=== PATIENT | female | born 1965 | race Caucasian/White ===

== ENCOUNTER 2019-12-27 10:18 | Outpatient (CLI) | payer MEDICARE, MEDICAID, SELFPAY | END 2019-12-27 10:19 | disposition home or self-care (01) | LOC: ANHBWCAUD 10:21 | DX: H91.93 Unspecified hearing loss, bilateral (principal) | CPT/HCPCS: 92557; 92567 ==

== ENCOUNTER 2021-10-15 08:53 | Outpatient (CLI) | payer MEDICARE, MEDICAID, SELFPAY | END 2021-10-15 08:54 | disposition home or self-care (01) | LOC: ANHBWCAUD 08:55 | PROVIDERS: Visit Provider Family Medicine | DX: H91.93 Unspecified hearing loss, bilateral (principal) | CPT/HCPCS: 92557; 92567 ==

== ENCOUNTER 2022-11-16 10:34 | Outpatient (CLI) | payer MEDICARE, MEDICAID, SELFPAY | END 2022-11-16 10:35 | disposition home or self-care (01) | DX: F71 Moderate intellectual disabilities (principal); F31.9 Bipolar disorder, unspecified; E11.9 Type 2 diabetes mellitus without complications; I10 Essential (primary) hypertension; E78.5 Hyperlipidemia, unspecified | CPT/HCPCS: 92552; 92556; 92567 ==

== ENCOUNTER 2023-11-22 09:14 | Outpatient (CLI) | payer MEDICARE, MEDICAID, SELFPAY | END 2023-11-22 09:15 | disposition home or self-care (01) | LOC: ANHBWCAUD 09:15 | PROVIDERS: Visit Provider Physician Assistant | DX: H90.A22 Sensorineural hearing loss, unilateral, left ear, with restricted hearing on the contralateral side (principal) | CPT/HCPCS: 92557; 92567 ==

== ENCOUNTER 2024-12-03 09:15 | Outpatient (CLI) | payer MEDICARE, MEDICAID, SELFPAY ==
--- OUTSIDE RECORDS SUMMARY | 2024-12-03 10:24 | XMS_ITS | Clinical Summary ---
Author Organization [facility] Address [address] [place] [address] Care Team Providers Care Reserve Officer Name Role Phone No, Physician Primary Care Provider [phone] Allergies No known active allergies Medications allopurinol (ZYLOPRIM) 300 mg tablet 7 Active calcium phos-vit D3-mag oxide 600 mg calcium- 500 unit-50 mg tablet Take by mouth. 6 Active diphenhydrAMINE (diphenhydrAMIN E) 25 mg capsule Take 25 mg by mouth. Active glimepiride (AMARYL) 2 mg tabletIndicatio ns:type 2 diabetes mellitus 7 Active blood glucose diagnostic (glucose blood) strip Use as directed 5 Active ibuprofen (ADVIL,MOTRIN) 600 mg tablet 7 Active FANAPT 8 mg tablet 7 Active FANAPT 10 mg tablet 7 Active lamoTRIgine (LaMICtal) 150 mg tablet 7 Active LANCETS MISC Use as directed 5 Active LINZESS 290 mcg capsule 7 Active linaclotide (LINZESS) 290 mcg capsule Take by mouth. 7 Active lisinopril (PRINIVIL,ZESTR IL) 5 mg tablet Take 5 mg by mouth. Active lisinopril (PRINIVIL,ZESTR IL) 5 mg tablet 7 Active loratadine (CLARITIN) 10 mg tablet Take 10 mg by mouth. Active metFORMIN (GLUCOPHAGE) 1,000 mg tablet Take 1,000 mg by mouth. Active OMEGA-3 FATTY ACIDS-FISH OIL ORAL Take 1,200 mg by mouth. Active simvastatin (ZOCOR) 40 mg tablet 7 Active traMADol (ULTRAM) 50 mg tablet 7 Active acetaminophen (TYLENOL) 325 mg tablet Take 650 mg by mouth every 6 (six) hours as needed for pain. Active mv,Ca,min-iron- FA-lycopene 8 mg iron- 200 mcg-600 mcg tablet Take by mouth. Activ e guaiFENesin (ROBITUSSIN) 20 mg/mL syrup Take 200 mg by mouth 3 (three) times a day as needed for cough. Active bisacodyl EC (DULCOLAX EC) 5 mg EC tablet Take 5 mg by mouth daily as needed for constipation. Active bacitracin-neom ycin-polymyxin B (NEOSPORIN) ointmentIndicat ions:Minor Bacterial Skin Infections Apply topically 3 (three) times a day. 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 50-70) 05/26/2015 Seizure disorder 05/26/2015 Medical History Medical History Date Comments Type 2 diabetes mellitus Diabete s type 2 Depression Depression Hx Other Medical Heart problems Social History Tobacco Use Types Packs/Day Years Used Date Smoking Tobacco: Never Smokeless Tobacco: Never Alcohol Use Standard Drinks/Week Comments No 0 (1 standard drink = 0.6 oz pur e alcohol) Comments Unknown Sex and Gender Information Value Date Recorded Sex Assigned at Not on file Legal Sex Female 4:36 PM DAIRY LAB TECHNICIAN Gender Identity Not on file Sexual Orientation Not on file Obstetrics History Last Filed Vital Signs Vital Sign Reading Time Taken Comments Blood Pressure 140/79 02/08/2017 10:01 AM DAIRY LAB TECHNICIAN Pulse 83 02/08/2017 10:01 AM DAIRY LAB TECHNICIAN Temperature - - Respiratory Rate - - Oxygen Saturation - - Inhaled Oxygen Concentration - - Weight 86.6 kg (191 lb) 02/08/2017 10:01 AM DAIRY LAB TECHNICIAN Height 170.2 cm (5' 7) 02/08/2017 10:01 AM DAIRY LAB TECHNICIAN Body Mass Index 29.91 02/08/2017 10:01 AM DAIRY LAB TECHNICIAN Plan of Treatment Health Maintenance Due Date Last Done Comments Albumin Creatinine Ratio, Urine 1964 Breast Cancer Screening-Mammogram 1964 Cervical Cancer Screening 1964 Colon Cancer Screening-Colonoscopy 1964 Depression Screening 1964 Hemoglobin A1C 1964 Hepatitis C Screening 1964 eGFR 1964 Dilated Eye Exam 1964 Foot Exam 1964 Lipid Panel 1964 Hepatitis B Screening 1982 Regular Well Visit/Exam 18-64 1982 Pneumococcal vaccine <65 (2 of 2 - PPSV23, PCV20, or PCV21) 01/27/2012 12/02/2011 Zoster Vaccine (1 of 2) 2014 DTaP/Tdap/Td Vaccine (3 - Td or Tdap) 09/04/2022 09/04/2012, 02/21/2012 Covid-19 Vaccine (3 - 2024-2 6 season) 2024 04/21/2020, 03/31/2020 Influenza Vaccine (#1) 2024 , 12/05/2019, 12/03/2018, Additional history exists Insurance MEDICARE [facility] Care Teams Reserve Officer Relationship Specialty Start Date End Date No, Physician PCP - General 01/19/17
--- OUTSIDE RECORDS SUMMARY | 2024-12-03 10:24 | XMS_ITS | Encounter Summary ---
Author Organization [facility] Address [address] [facility] [place] [address] Phone Care Team Providers Care Branch Account Executive Name Role Phone Sukhdev Becker DPM Unavailable [phone] Jose Alejandro Sequeira MD Unavailable [phone] Vilma Chavarria APRN, CAMERA TUNING ENGINEER Unavailable Allie Rodriguez MD Primary Care Provider [phone] Cory Puentes Primary Care Provider [phone] Reason for Visit * Reason Comments Medication Refill Encounter Details Date Type Department Care Team (Late st Contact Info) Description 04/22/2023 Refill [facility] - Gastroenterology - [place] [address] [place] [id number] Vilma Chavarria APRN, [employer]ER[employer] TUNING ENGINEER [address] [place] [address] Medication Refill Social History Tobacco Use Types Packs/Day Years Used Date Smoking Tobacco: Never Smokeless Tobacco: Never Alcohol Use Standard Drinks/Week Comments No 0 (1 standard drink = 0.6 oz pur e alcohol) PHQ-2 Answer Date Recorded Total Score - Questions 1-9 0 11/20 Sexually Active Control Partners Comments Not Currently Comments No Sex and Gender Information Value Date Recorded Sex Assigned at Not on file Legal Sex Female 7:34 PM CDT Gender Identity Not on file Sexual Orientation Not on file documented as of this encounter Miscellaneous Notes * Telephone Encounter - Karla Wall RN - 04/25/2023 10:30 AM COLLEGE SPORTS COACH Routing to provider for review and approval. Patient has an appt on 04/28/2023. Last appt on 04/27/2023. Quantity reduced to 30 days and 2 refills. EGE SPORTS COACH * Telephone Encounter - Karla Wall RN - 04/25/2023 10:28 AM COLLEGE SPORTS COACH Pharmacy requesting refill of: Requested Prescriptions Pending Prescriptions Disp Refills linaclotide (Linzess) 145 MCG Capsule [Pharmacy Med Name: LINZESS 145 MCG CAPSULE] 30 Capsule 10 Sig: TAKE (1) CAPSULE BY MOUTH DAILY IN THE MORNING BEFORE BREAKFAST. 7AM *HOME MUST REORDER* Last fill: 04/27/2023 Patients last OV with GI: 04/27/2023 Next Office Visit with GI: 04/28/2023 EGE SPORTS COACH documented in this encounter Plan of Treatment Upcoming Encounters Date Type Department Care Team (Late st Contact Info) Description 12/13/2024 10:30 AM CDT Office Visit [facility] - Primary Care - [place] [address] [place] [phone] Cory Puentes PAC [address] [place] [address] 05/15/2025 9:30 AM CDT Office Visit [facility] - Gastroenterology - [place] [address] [place] [address] Vilma Chavarria APRN, [employer]ER[employer] TUNING ENGINEER [address] [place] [address] 08/12/2025 9:30 AM CDT Office Visit [facility] - Neurology - [place] [address] [place] [address] Kassandra Barahona APRN, DATA TRANSCRIBER [address] [place] [address] documented as of this encounter Visit Diagnoses Diagnosis Chronic constipation Unspecified constipation documented in this encounter Additional Health Concerns Assessment Noted Time PHQ-9 Depression Total Score: 0 12/08/19 23 8:00 AM CDT documented as of this encounter Care Teams Branch Account Executive Relationship Specialty Start Date End Date Allie Rodriguez MD [address] [place], [place] [id number] PCP - General Family Medicine 04/20/23 06/07/23 Cory Puentes PAC [address] [place] [address] PCP - General Physician Ground Water Contractor 06/08/23 Sukhdev Becker DPM Podiatry 04/13/16 Jose Alejandro Sequeira MD [address] [place] [phone] Consulting Physician Neurology 08/19/22 Vilma Chavarria APRN, CAMERA TUNING ENGINEER [address] [place] [address] Nurse Practitioner Advanced Practice Nurse 04/26/22 documented as of this encounter
--- OUTSIDE RECORDS SUMMARY | 2024-12-03 10:24 | XMS_ITS | Clinical Summary ---
Author Organization [facility] Address [address], [facility] [address] [place] [address] Phone Care Team Providers Care Coke Oven Patcher Name Role Phone Sukhdev Becker DPM Unavailable [phone] Jose Alejandro Sequeira MD Unavailable [phone] Vilma Chavarria APRN, CASEWORKER Unavailable Cory Puentes PAC Primary Care Provider [phone] Allergies No known active allergies Medications LamoTRIgine (LAMICTAL) 150 MG Tablet Take 150 mg by mouth 2 times daily. Active loratadine (CLARITIN) 10 MG Tablet Take 10 mg by mouth every morning. Active Calcium Carb-Cholecalcifer ol 500-200 MG-UNIT Tablet Take 1 Tab by mouth daily. Active Probiotic Product ([employer]) Capsule Take 1 Cap by mouth daily. 30 Cap 11 07/20/19 19 Active bisacodyl EC (DULCOLAX) 5 MG Tablet Delayed Response Take 10 mg by mouth daily as needed for Constipation - 1st line. Active Cholecalciferol (VITAMIN D3 PO) Take 5,000 Units by mouth daily. Active docusate sodium (COLACE) 100 MG Capsule Take 1 Capsule by mouth 2 times daily. 180 Capsule 3 04/27/19 22 Active Fanapt 6 MG Tablet Take 6 mg by mouth 2 times daily. 11/08/19 22 Active Reguloid 0.52 g Capsule Take 1 Capsule by mouth 2 times daily. 09/07/19 24 Active Cyanocobalamin (Vitamin B-12) 1000 MCG SL Tablet by Sublingual route daily. Active acetaminophen (TYLENOL) 325 MG Tablet Take 650 mg by mouth every 4 hours as needed. Active guaiFENesin (CHEST CONGESTION RELIEF PO) Take 10 mL by mouth as needed. 100 mg/5 mL Active diphenhydrAMINE (BENADRYL) 25 MG Tablet Take 25 mg by mouth every 6 hours as needed. Active ibuprofen (MOTRIN) 600 MG Tablet Take 600 mg by mouth every 8 hours as needed for Mild or more severe pain. Active mometasone (ELOCON) 0.1 % Solution Apply daily. Mometasone furoate 0.1% SOLN Instill 2 drops into affected ears twice daily as needed. Active bismuth subsalicylate (Stomach Relief) 525 MG/15ML Suspension Take 525 mg by mouth as needed for Diarrhea or Indigestion. Active simethicone (Gas-X Ultra Strength) 180 MG CapsuleIndications :Colon cancer screening Take as directed per colon prep instructions 6 Capsule 03/14/19 25 Active aluminum & magnesium hydroxide-simethic one (MAALOX, MYLANTA) 200-200-20 MG/5ML Suspension Take 30 mL by mouth every 4 hours as needed for Indigestion. Active Neomycin-Bacitraci n-Polymyxin (HCA TRIPLE ANTIBIOTIC OINTMENT EX) by Apply externally route. Active linaclotide (Linzess) 145 MCG CapsuleIndications :Chronic constipation Take 1 Capsule by mouth every morning (before breakfast). 90 Capsule 3 05/10/19 25 Active simvastatin (ZOCOR) 80 MG TabletIndications: Mixed hyperlipidemia Take 1 Tablet by mouth every evening. 90 Tablet 1 06/13/19 25 Active metFORMIN (GLUCOPHAGE) 1000 MG TabletIndications: Type 2 diabetes mellitus without complication, without long-term current use of insulin Take 1 Tablet by mouth 2 times daily. 180 Tablet 06/13/19 25 Active lisinopril (PRINIVIL, ZESTRIL) 10 MG TabletIndications: Essential hypertension Take 1 Tablet by mouth every morning. 90 Tablet 1 06/13/19 25 Active glipiZIDE (GLUCOTROL XL) 10 MG TABLET SR 24 HRIndications:Diab etic polyneuropathy associated with type 2 diabetes mellitus,Type 2 diabetes mellitus without complication, without long-term current use of insulin Take 1 Tablet by mouth daily. 90 Tablet 3 06/13/19 25 Active fenofibrate 160 MG TabletIndications: Mixed hyperlipidemia Take 1 Tablet by mouth daily. 90 Tablet 1 06/13/19 25 Active allopurinol (ZYLOPRIM) 300 MG Tablet Take 1 Tablet by mouth daily. 90 Tablet 06/13/19 25 Active Active Problems Problem Noted Date Diagnosed Date Adenomatous polyp of ascending colon 05/07/2024 Type 2 diabetes mellitus wit hout complication, without long-term current use of insulin 12/13/2023 Vitamin D deficiency 08/06/2020 Vitamin B12 deficiency 05/04/2020 NAFLD (nonalcoholic fatty liver disease) 020 Allergic rhinitis 10/30/2018 Chronic constipation 03/04/2016 Diabetic polyneuropathy asso ciated with type 2 diabetes mellitus 10/09/2015 Moderate intellectual disabilities 05/26/2015 Bipolar affective disorder 05/26/2015 Seizure disorder 05/26/2015 Gout 05/26/2015 Hirsutism 05/26/2015 Essential hypertension 05/26/2015 Hyperlipidemia 05/26/2015 Resolved Problems Problem Noted Date Diagnosed Date Resolved Date Sepsis 04/25/2021 09/13/2021 Acute cystitis without hematuria 04/25/2021 04/26/2021 Lower abdominal pain 04/25/2021 022 Acute renal failure (ARF) 04/25/2021 Hypercalcemia 04/25/2021 04/26/2021 Dermatophytosis of nail 09/22/2017 05/0 08/2018 Wainwright or callus 09/22/2017 06/26/2018 Encounters Date Type Department Care Team Description 10/28/2024 Results Follow-Up [facility] [place] [address] [place] [address] Cory Puentes, PAC SUSHILA SCREENING BILATERAL DIGITAL W CAD 10/25/2024 10:45 AM CDT - 10/25/2024 11:59 PM CDT Hospital [facility] [address] [place] [address] Cory Puentes, PAC Discharge Disposition: Discharged to home or Selfcare 10/25/2024 Travel 10/08/2024 Telephone [facility] [place] [address] [place] [phone] Cory Puentes, PAC Results 09/25/2024 Telephone [facility] [place] [address] [place] [phone] Cory Puentes, PAC Need Order from Last 3 Months Immunizations Immunization Administration Dates Next Due Covid-19, Mrna, Lnp-s, Pf, 3 0 Mcg/0.3 Ml Dose ([place]ven[place]) 04/21/2020,03/31/2020 DTAP VACCINE 02/21/2012 Influenza Vaccine greater than 3 yrs 11/12/2014, 11/20/2013 Influenza Vaccine less than 3 yrs 12/18/2015 Influenza Vaccine, Quadrivalent, PF 10/22,12/02/2021,11/26/2020,11/26,12/05/2019,12/07/2017,12/01/2016 Influenza, Injectable, Mdck,quadrivalent,with Preservative 11/28/2018 Influenza, Injectable, Quadrivalent 12/03/2018,1 ,12/18/2015 Influenza, Seasonal, Injecta ble, Undefined 11/12/2014,11/22/2013,11/20/2013,12/07 Influenza,Split Virus,Trivalent,Injectable,PF 11/10/2023 Pneumococcal Vaccine Peds - 7 Valent 12/02/2011 Pneumococcal conjugate PCV20 , polysaccharide [id number] conjugate, adjuvant, PF 06/12/2024 TB Skin Test 02/21/2012 TDAP Vaccine 09/04/2012 Zoster Vaccine Recombinant 08/11/2021,06/11/2021 Family History Medical History Relation Name Comments Heart Attack Father Relation Name Status Comments Father Social History Tobacco Use Types Packs/Day Years Used Date Smoking Tobacco: Never Smokeless Tobacco: Never Tobacco Cessation:Counseling Given: Not Answered Alcohol Use Standard Drinks/Week Comments No 0 (1 standard drink = 0.6 oz pur e alcohol) [facility] Utilities Answer Date Recorded In the past 12 months has e Performance Indicator, gas, oil, or water [employer] threatened to shut off services in your home? Patient declined 06/12/2024 Social Connection and Isolation Panel Answer Date Recorded In a typical week, how many times do you talk on the phone with family, friends, or neighbors? Patient declined 06/12/2024 How often do you get togethe r with friends or relatives? Patient declined 06/12/2024 How often do you attend hinduism or taoist serv ices? Patient declined 06/12/2024 Do you belong to any clubs o r organizations such as hinduism groups, unions, fraternal or athletic groups, or school groups? Patient declined 06/12/2024 How often do you attend meet ings of the clubs or organizations you belong to? Patient declined 06/12/2024 Are you , , di vorced, , never , or living with a partner? Patient declined 06/12/2024 AUDIT-C Answer Date Recorded Q1: How often do you have a drink containing alc ohol? Patient declined 06/12/2024 Q2: How many drinks containi ng alcohol do you have on a typical day when you are drinking? Patient declined 06/12/2024 Q3: How often do you have si x or more drinks on one occasion? Patient declined 06/12/2024 Overall Financial Resource Strain (CARDIA) Answe r Date Recorded How hard is it for you to pa y for the very basics like food, housing, medical care, and heating? Patient declined 06/12/2024 PHQ-2 Answer Date Recorded Total Score - Questions 1-9 0 05/22 [facility] - Occupational Stress Questionnaire Answer Date Recorded Do you feel stress - tense, restless, nervous, or anxious, or unable to sleep at night because your mind is troubled all the time - these days? Patient declined 06/12/2024 Exercise Vital Sign Answer Date Recorde d On average, how many days pe r week do you engage in moderate to strenuous exercise (like a brisk walk)? Patient declined On average, how many minutes do you engage in exercise at this level? Patient declined 06/12/2024 Hunger Vital Sign Answer Date Recorded Within the past 12 months, y ou worried that your food would run out before you got the money to buy more. Patient declined Within the past 12 months, t he food you bought just didn't last and you didn't have money to get more. Patient declined PRAPARE - Transportation Answer Date Re corded In the past 12 months, has l ack of transportation kept you from medical appointments or from getting medications? Patient declined 06/12/2024 In the past 12 months, has l ack of transportation kept you from meetings, work, or from getting things needed for daily living? Patient declined 06/12/2024 Housing Stability Vital Sign Answer Ta e Recorded In the last 12 months, was t here a time when you were not able to pay the mortgage or rent on time? Patient declined 06/13/19 25 Number of Times Moved in the Last Year Not on fi le 06/12/2024 At any time in the past 12 m [facility], were you homeless or living in a senior care (including now)? Patient declined 06/12/2024 Sexually Active Control Partners Comments Not Currently Comments No Sex and Gender Information Value Date Recorded Sex Assigned at Not on file Legal Sex Female 7:34 PM CDT Gender Identity Not on file Sexual Orientation Not on file Last Filed Vital Signs Vital Sign Reading Time Taken Comments Blood Pressure 140/70 08/15/2024 8:58 AM CDT Pulse 75 08/15/2024 8:58 AM CDT Temperature 36.3 C (97.4 F) 08/15/2024 8:58 AM CDT Respiratory Rate 17 08/15/2024 8:58 AM CDT Oxygen Saturation 97% 08/15/2024 8:58 AM CDT Inhaled Oxygen Concentration - - Weight 80.6 kg (177 lb 12.8 oz) 08/15/2024 8:58 AM CDT Height 160 cm (5' 3) 08/15/2024 8:58 AM CDT Body Mass Index 31.5 08/15/2024 8:58 AM CDT Plan of Treatment Upcoming Encounters Date Type Department Care Team (Late st Contact Info) Description 12/13/2024 10:30 AM CDT Office Visit [facility] - [place] [address] [place] [address] Cory Puentes, PAC [address] [place] [address] 05/15/2025 9:30 AM CDT [facility] [place] [address] [place] [phone] Vilma Chavarria, METAL MILLING MACHINE OPERATOR, CASEWORKER [address] [facility] [address] 08/12/2025 9:30 AM CDT [facility] [place] [address] [place] [phone] Kassandra Barahona, METAL MILLING MACHINE OPERATOR, HEAT TREATER HEAD [address] [place] [address] Health Maintenance Due Date Last Done Comments Hepatitis C Virus (HCV) Screening 1965 Cologuard 2009 Medicare Initial AWV [id number] 09/21/2011 Immunochemical Fecal Occult Blood 11/05/2018 11/05/2017 Td Immunization Every 10 Years (Adults With 1 Tdap) 09/04/2022 09/04/2012, 09/04/2012, 02/21/2012 Diabetes: Foot Exam 09/16/2023 09/15/2022, 3 Respiratory Syncytial Virus (RSV) Immunization (Adult) (1 - Risk 60-74 years 1-dose series) 2024 Influenza Immunization (#1) 10/21/202410/22, 11/14/2022, 12/02/2021, Additional history exists SARS-COV-2 Immunization ( season) 2024 01/23/2023, 12/02/2021, 10/01/2021, Additional history exists Diabetes: Hemoglobin A1c 04/06/2025 025, 06/15/2024, 12/19/2023, Additional history exists Diabetes: Eye Exam 06/20/2025 06/20/2024, 0 06/20/2023, 06/20/2023, Additional history exists Diabetes: Nephropathy Screening 10/04/2025 10/04/2024, 06/13/2023, 06/13/2023, Additional history exists Mammogram 10/25/2025 10/25/2024, 09/21, 10/14/2022, Additional history exists Colonoscopy 05/07/2029 05/07/2024, 07/22, 04/10/2014 Colorectal Cancer Screening 05/07/2029 Zoster Immunization Completed 08/11/2021, Pneumococcal Immunization (50+ years) Completed 06/12/2024, 12/02/2011 Pneumococcal Immunization Combined Discontinued 06/12/2024, 12/02/2011 Hepatitis B Immunization Discontinued Human Papillomavirus (HPV) Immunization Aged Out No longer eligible based on patient's age to complete this topic Meningococcal Immunization (ACWY) Aged Out No longer eligible based on patient's age to complete this topic Rotavirus Immunization Aged Out No lo nger eligible based on patient's age to complete this topic Procedures Procedure Name Priority Date/Time Associated Diagnosis Comments [facility] SCREENING BILATERAL DIGITAL W CAD Routine 10/25/2024 11:13 AM CDT Visit for screening mammogram HEMOGLOBIN, A1C 10/04/2024 12:00 AM CDT LIPID PANEL 10/04/2024 12:00 AM CDT VITAMIN D, 25 HYDROXY TOTAL 10/04/2024 12:00 AM CDT VITAMIN B12 10/04/2024 12:00 AM CDT COMPLETE BLOOD COUNT (CBC) WITH DIFF 10/04/2024 12:00 AM CDT THYROID STIMULATING HORMONE (TSH) 10/04/2024 12:00 AM CDT CMP (COMPREHENSIVE METABOLIC PANEL) 10/04/2024 12:00 AM CDT HM DILATED EYE EXAM 06/20/2024 1 2:00 AM CDT PODIATRY CONSULT 09/15/2022 12:0 0 AM CDT STOOL, OCCULT BLOOD, DIAGNOSTIC, VIA GUAIAC STAT 11/05/2017 7:30 PM CDT HM COLONOSCOPY Routine 04/10/2014 from Last 3 Months or Most Recently Relevant to Health Maintenance Results * [facility] SCREENING BILATERAL DIGITAL W CAD (10/25/2024 11:13 AM CDT) Anatomical Region Laterality Modality breast Bilateral Mammography 10/25/2024 11:1 3 AM CDT Impressions 10/28/2024 12:33 PM CDT IMPRESSION: No mammographic evidence of malignancy. Evaluation is limited secondary to lack of 3-D images. RECOMMENDATION: If there is no interval change in the clinical breast examination, the patient can return in one year for annual screening mammography. Narrative 10/28/2024 12:33 PM CDT Exam: SUSHILA SCREENING BILATERAL DIGITAL W CAD. Direct digital imaging using CAD. Tomosynthesis images were obtained and reviewed. Clinical History: Screening. No current complaints. Comparison: 10/19/2023 Technique: Two standard digital views of both breasts were performed and reviewed with the aid of R2 CAD. Findings: There are scattered areas of fibroglandular density. Bilateral benign calcifications. There are no suspicious masses, microcalcifications or areas of nonsurgical architectural distortion. BIRADS 2: Benign Cory Puentes [facility] IMG MAMMO ORDERABLES Final R esult * VITAMIN D, 25 HYDROXY TOTAL (10/04/2024 12:00 AM CDT) 10/04/2024 us Provider Scan CHEMISTRY ORDERABLES Final Resul t Performing Organization Address [facility] Co de Phone Number SCAN * VITAMIN B12 (10/04/2024 12:00 AM CDT) 10/04/2024 us Provider Scan CHEMISTRY ORDERABLES Final Resul t Performing Organization Address City/State/[facility] Co de Phone Number SCAN * THYROID STIMULATING HORMONE (TSH) (10/04/2024 12:00 AM CDT) 10/04/2024 us Provider Scan CHEMISTRY ORDERABLES Final Resul t SCAN * LIPID PANEL (10/04/2024 12:00 AM CDT) CHOLESTEROL 131 SCAN HDL CHOLESTEROL 66 SCAN LDL 45 SCAN 10/04/2024 us Provider Scan CHEMISTRY ORDERABLES Final Resul t Performing Organization Address [facility] de Phone Number SCAN * HEMOGLOBIN, A1C (10/04/2024 12:00 AM CDT) HGB-A1C 6.5 SCAN 10/04/2024 us Provider Scan CHEMISTRY ORDERABLES Final Resul t Performing Organization Address [facility] de Phone Number SCAN * CMP (COMPREHENSIVE METABOLIC PANEL) (10/04/2024 12:00 AM CDT) 10/04/2024 us Provider Scan CHEMISTRY ORDERABLES Final Resul t Performing Organization Address [facility] de Phone Number SCAN * COMPLETE BLOOD COUNT (CBC) WITH DIFF (10/04/2024 12:00 AM CDT) 10/04/2024 us Provider Scan HEMATOLOGY ORDERABLES Final Resu lt Performing Organization Address [facility] de Phone Number SCAN * HM DILATED EYE EXAM (06/20/2024 12:00 AM CDT) 06/20/2024 us Provider Scan PROCEDURE/MINOR SURGICAL ORDERAB LES Final Result Performing Organization [facility] de Phone Number SCAN * PODIATRY CONSULT (09/15/2022 12:00 AM CDT) 09/15/2022 us Provider Scan GENERIC SCAN ORDERS CONSULT Renetta l Result SCAN * Stool Occult Blood - Diagnostic (11/05/2017 7:30 PM CDT) OCCULT BLOOD DIAG Negative Negative 11/05/2017 8:28 PM CDT [facility] Stool specimen (specimen) Non-Phlebotomy Collection / Unknown 11/05/2017 7:30 PM CDT 11/05/2017 7:45 PM CDT us Nichelle Rothman Page PAC BODY FLUIDS & STOOLS ORDERAB LES Final Result Performing Organization Address City/[facility]/ZIP Co de Phone Number [facility] [address] [place] [address] * COLONOSCOPY (04/10/2014) Myranda Parham MD PROCEDURE/MINOR SURGICAL ORD ERABLES Final Result from Last 3 Months or Most Recently Relevant to Health Maintenance Insurance MEDICARE [place]ICAID [place] Advance Directives * Full Code (Latest Code Status on File) Date Activated Date Inactivated Comments 04/24/2021 11:46 PM 04/26/2021 8:48 PM CPR-Full Yoana tment: FULL ARREST: Attempt Resuscitation/CPR wit intubation and mechanical ventilation. PRE-ARREST: Use entire range of life support measures to stabilize the patient. * Full Code Date Activated Date Inactivated Comments 04/24/2021 10:34 PM 04/24/2021 11:46 PM CPR-Full Sherman atment: FULL ARREST: Attempt Resuscitation/CPR wit intubation and mechanical ventilation. PRE-ARREST: Use entire range of life support measures to stabilize the patient. Care Teams Coke Oven Patcher Relationship Specialty Start Date End Date Cory Puentes, PAC [address] [place] [address] PCP - General Physician Ditch Tender 06/08/23 Sukhdev Becker DPM Podiatry 04/13/16 Jose Alejandro Sequeira MD [address] [place] [phone] Consulting Physician Neurology 08/19/22 Vilma Chavarria APRN, CASEWORKER [address] [place] [address] Nurse Practitioner Advanced Practice Nurse 04/26/22
--- OUTSIDE RECORDS SUMMARY | 2024-12-03 10:24 | XMS_ITS | Patient Health Record ---
Author Organization [facility] Address [address] [place] [address] Support Name Relationship Address Phone KYLAH GARCIA Guarantor Unknown [phone] Allergies No Known Allergies Reason For Referral No Information Medications Medication SIG (Take, Route, Frequency, Duration) Notes Start Date End Date Status metFORMIN HCl 1000 MG Tablet Oral 08/06/2021 Active Allopurinol 300 MG Tablet Oral 08/06/2021 Active Lisinopril 10 MG Tablet Oral 08/06/2021 Active lamoTRIgine 150 MG Tablet Oral 08/06/2021 Active FiberCon 625 MG Tablet Oral 08/06/2021 Active Bisacodyl EC 5 MG Tablet Delayed Release Oral 08/06/2021 Active Linzess 145 MCG Capsule Oral 08/06/2021 Active Fenofibrate 160 MG Tablet Oral 08/06/2021 Active Fanapt 6 mg Tablet Oral 08/06/2021 Active Fluticasone Propionate Diskus 50 MCG/ACT Aerosol Powder Breath Activated Inhalation *Reorder from [employer] for eRx and Interaction Alerts* 08/06/2021 Active OYSTER SHELL CALCIUM 500 MG-VITAMIN D3 5 MCG (200 UNIT) POWDER PACKET *Reorder from [employer] for eRx and Interaction Alerts* 08/06/2021 Active Mometasone Furoate 0.1 % Solution External 08/06/2021 Active Mupirocin 2% Ointment External 08/06/2021 Active [facility] ChartsNow (now Music[employer]) *Reorder from [employer] for eRx and Interaction Alerts* 08/06/2021 Active Loratadine 10 MG Tablet Oral 08/06/2021 Active CALCIUM CARBONATE 500 MG-VITAMIN D3 5 MCG (200 UNIT) TABLET *Reorder from [employer] for eRx and Interaction Alerts* 08/06/2021 Active Glimepiride 2 MG Tablet Oral 08/06/2021 Active Vitamin B-12 1000 MCG Tablet Sublingual Sublingual 08/06/2021 Active Ibuprofen 600 MG Tablet Oral 08/06/2021 Active Permethrin 5% Cream External 08/06/2021 Active Simvastatin 80 MG Tablet Oral 08/06/2021 Active Immunizations Vaccine Route Administration Date Status Comme nts DTaP Unknown 02/21/2012 Administered Influenza virus vaccine, quadrivalent (IIV4), split virus, 0.25 mL dosage Unknown 12/18/2015 Administered Influenza virus vaccine, quadrivalent (IIV4), split virus, 0.25 mL dosage Unknown 12/03/2017 Administered Influenza virus vaccine, quadrivalent (IIV4), split virus, 0.25 mL dosage Unknown 12/03/2018 Administered Influenza, injectable, MDCK, preservative free Unknown 11/28/2018 Administered Influenza, seasonal, injecta ble, preservative free, 3 yrs and above Unknown 12/07/2012 Administered Influenza, seasonal, injecta ble, preservative free, 3 yrs and above Unknown 11/20/2013 Administered Influenza, seasonal, injecta ble, preservative free, 3 yrs and above Unknown 11/22/2013 Administered Influenza, seasonal, injecta ble, preservative free, 3 yrs and above Unknown 11/12/2014 Administered Influenza, seasonal, injecta ble, preservative free, 3 yrs and above Unknown 12/18/2015 Administered Novel [id number], preservative free Unknown 12/01/2016 Administered Novel [id number], preservative free Unknown 12/07/2017 Administered Novel [id number], preservative free Unknown 12/05/2019 Administered Pfizer Biontech Covid-19 Vac cine 2nd dose Unknown 03/31/2020 Administered Pfizer Biontech Covid-19 Vac cine 2nd dose Unknown 04/21/2020 Administered Pfizer [employer] Covid-19 Vac cine 2nd dose Unknown 11/26/2020 Administered Pneumococcal conjugate PCV 7 Unknown 12/02/2011 Adminis tered Td (adult) Unknown 02/21/2012 Administered Td (adult) Unknown 09/04/2012 Administered Tdap Unknown 09/04/2012 Administered Social History Social History Additional Details Category Social Info Options Details Migrated Social History Migrated Social History Alcohol Intake: None 12/24/2019,Tobacco Years: Never smoker 12/24/2019,Smoking Status: 0 12/24/2019 Plan Of Treatment No Information Insurance Providers Payer Name Payer Address Payer Phone Subscriber Number Group Number Insured Name Patient Relationship to Insured Coverage Start Date Coverage End Date Medicare-I l Medicare [address] [place] [address] [id number] KYLAH GARCIA Self - patient is the insured Medicaid-[place] Medicaid [address] [address] [place] [address] [id number] KYLAH GARCIA Self - patient is the insured
--- OUTSIDE RECORDS SUMMARY | 2024-12-03 10:24 | XMS_ITS | Encounter Summary ---
Author Organization [facility] Address [address] [place] [address] Phone Care Team Providers Care Compugraph Operator Name Role Phone Myranda Parham MD Primary Care Provider + [phone] Sukhdev Becker DPM Unavailable [phone] Debby Anthony MD Primary Care Provider + [phone] Jose Alejandro Sequeira MD Unavailable [phone] Vilma Chavarria APRN, FISHING CAPTAIN Unavailable Allie Rodriguez MD Primary Care Provider + [phone] Cory Puentes Primary Care Provider + [phone] Reason for Visit * Reason Comments Medication Refill Encounter Details Date Type Department Care Team (Late st Contact Info) Description 06/29/2021 Refill [facility] - Gastroenterology - [place] [address] [place] [id number] Ellie Joy Tamara, PAC [address] [place] [address] Medication Refill Social History Tobacco Use Types Packs/Day Years Used Date Smoking Tobacco: Never Smokeless Tobacco: Never Alcohol Use Standard Drinks/Week Comments No 0 (1 standard drink = 0.6 oz pur e alcohol) Sexually Active Control Partners Comments Not Currently Comments No Sex and Gender Information Value Date Recorded Sex Assigned at Not on file Legal Sex Female 7:34 PM CDT Gender Identity Not on file Sexual Orientation Not on file COVID-19 Exposure Response Date Recorded In the last 10 days, have yo u been in contact with someone who was confirmed or suspected to have Coronavirus/COVID-19? No / Unsure 06/04/2021 11:24 AM CDT documented as of this encounter Miscellaneous Notes * Telephone Encounter - Karla Wall RN - 06/29/2021 2:07 PM CDT Medication refilled and signed per [facility] chronic medication standing order for pediatric and adult patients. documented in this encounter Plan of Treatment Upcoming Encounters Date Type Department Care Team (Late st Contact Info) Description 12/13/2024 10:30 AM CDT Office Visit [facility] - Primary Care - [place] [address] [place] [phone] Cory Puentes PAC [address] [place] [address] 05/15/2025 9:30 AM CDT Office Visit [facility] - Gastroenterology - [place] [address] [place] [address] Vilma Chavarria APRN, FISHING CAPTAIN [address] [place] [address] 08/12/2025 9:30 AM CDT Office Visit [facility] - Neurology - [place] [address] [place] [phone] Kassandra Barahona APRN, ORACLE DBA [address] [place] [address] documented as of this encounter Visit Diagnoses Diagnosis Chronic constipation Unspecified constipation documented in this encounter Additional Health Concerns Assessment Noted Time PHQ-9 Depression Total Score: 0 03/09/19 18 1:50 PM BAIT PAINTER documented as of this encounter Care Teams Compugraph Operator Relationship Specialty Start Date End Date Myranda Parham MD PCP - General Family Medicine 11/23/14 04/25/22 Debby Anthony MD PCP - General Family Medicine 04/26/22 04/19/23 Allie Rodriguez MD [address] [place] [address] PCP - General Family Medicine 04/20/23 06/07/23 Cory Puentes PAC [address] [place] [address] PCP - General Physician Scallop Dredger 06/08/23 Sukhdev Becker DPM Podiatry 04/13/16 Jose Alejandro Sequeira MD [address] [place] [id number] Consulting Physician Neurology 08/19/22 Vilma Chavarria APRN, FISHING CAPTAIN [address] [place] [address] Nurse Practitioner Advanced Practice Nurse 04/26/22 documented as of this encounter
--- OUTSIDE RECORDS SUMMARY | 2024-12-03 10:24 | XMS_ITS | Encounter Summary ---
Author Organization [facility] Address [address] [facility] [place] [address] Phone Care Team Providers Care Project Manager Process Development Name Role Phone Myranda Parham MD Primary Care Provider + [phone] Sukhdev Becker DPM Unavailable [phone] Debby Anthony MD Primary Care Provider + [phone] Jose Alejandro Sequeira MD Unavailable [phone] Vilma Chavarria APRN, RED HAT ENGINEER Unavailable Allie Rodriguez MD Primary Care Provider + [phone] Cory Puentes Primary Care Provider + [phone] Reason for Referral * PT/OT/ST (Routine) - Closed Specialty Diagnoses / Procedures Referred By Contac t Referred To Contact Rehabilitation Diagnoses Seizure disorder Moderate intellectual disabilities Myranda Parham MD [address] [place] [address] Phone: tel: fax: [facility] [address], [address] [address] Phone: tel: fax: Referral ID Status Reason Start Date Expiration Date Visits Re quested Visits Authorized [id number] Closed 04/17/2020 1 1 Scheduling Instructions Michelle is being referred for occupational therapy to eval and treat. Please contact patient for scheduling questions or concerns. See below for Michelle's current medications, allergies and problem list. CURRENT MEDS: Current Outpatient Medications: allopurinol (ZYLOPRIM) 300 MG Tablet, Take 300 mg by mouth daily., Disp: , Rfl: Calcium Carb-Cholecalciferol (OYSTER CALCIUM/D3) 500-200 MG-UNIT Tablet, Take 1 Tab by mouth daily., Disp: , Rfl: FANAPT 8 MG Tablet, Take 8 mg by mouth 2 times daily., Disp: , Rfl: fenofibrate 160 MG Tablet, Take 1 Tab by mouth daily., Disp: 90 Tab, Rfl: 1 glimepiride (AMARYL) 2 MG Tablet, Take 1 Tab by mouth 2 times daily. Indications: once a day, Disp: 180 Tab, Rfl: 1 LamoTRIgine (LAMICTAL) 150 MG Tablet, Take 150 mg by mouth 2 times daily., Disp: , Rfl: LINZESS 290 MCG Capsule, TAKE (1) CAPSULE BY MOUTH EVERY MORNING BEFORE BREAKFAST (STOOL SOFTENER) 7AM *HOME MUST REORDER*, Disp: 30 Cap, Rfl: 5 lisinopril (PRINIVIL, ZESTRIL) 5 MG Tablet, Take 5 mg by mouth every morning., Disp: , Rfl: loratadine (CLARITIN) 10 MG Tablet, Take 10 mg by mouth every morning., Disp: , Rfl: metFORMIN (GLUCOPHAGE) 1000 MG Tablet, Take 1,000 mg by mouth 2 times daily., Disp: , Rfl: polycarbophil calcium (FIBERCON) 625 MG Tablet, Take 1 Tab by mouth daily., Disp: 30 Tab, Rfl: 11 Probiotic Product ([employer]) Capsule, Take 1 Cap by mouth daily., Disp: 30 Cap, Rfl: 11 simvastatin (ZOCOR) 80 MG Tablet, Take 1 Tab by mouth every evening., Disp: 90 Tab, Rfl: 1 No current facility-administered medications for this visit. ALLERGIES: No Known Allergies PROBLEM LIST: Patient Active Problem List: Moderate intellectual disabilities Bipolar affective disorder (HCC) Seizure disorder (HCC) Gout Hirsutism Essential hypertension Hyperlipidemia Diabetic polyneuropathy associated with type 2 diabetes mellitus (HCC) Chronic constipation Allergic rhinitis NAFLD (nonalcoholic fatty liver disease) R HELPER Reason for Visit * Reason Onset Date Comments Referral 04/16/2020 Encounter Details Date Type Department Care Team (Late st Contact Info) Description 04/16/2020 Telephone [facility] [address] [place] [phone] Myranda Parham MD [address] [place] [address] Referral Social History Tobacco Use Types Packs/Day Years Used Date Smoking Tobacco: Never Smokeless Tobacco: Never Alcohol Use Standard Drinks/Week Comments No 0 (1 standard drink = 0.6 oz pur e alcohol) Comments No Sex and Gender Information Value Date Recorded Sex Assigned at Not on file Legal Sex Female 7:34 PM CDT Gender Identity Not on file Sexual Orientation Not on file COVID-19 Exposure Response Date Recorded In the last month, have you been in contact with someone who was confirmed or suspected to have Coronavirus / COVID-19? Unable to assess 03/17/2020 2:36 PM PIPER HELPER documented as of this encounter Miscellaneous Notes * Telephone Encounter - Myranda Parham MD - 04/17/2020 8:56 AM CST Referral signed. Thanks for pending. R HELPER * Telephone Encounter - Gaby Anderson RN - 04/16/2020 4:53 PM PIPER HELPER Pended order. R HELPER * Telephone Encounter - Myranda Parham MD - 04/16/2020 2:44 PM CST Please pend orders with diagnosis as requested. R HELPER * Telephone Encounter - Gaby Anderson RN - 04/16/2020 11:18 AM PIPER HELPER Received call from Andrea with [facility] who states that patient was to have a referral for OT sent but they only had received PT and speech orders. She is asking that a new referral be placed for OT. States that patient gets these referrals annually. Per review of chart the referral that was placed states PT/OT. Routing to provider to advise if separate OT referral needs placed for this patient. R HELPER documented in this encounter Plan of Treatment Upcoming Encounters Date Type Department Care Team (Late st Contact Info) Description 12/13/2024 10:30 AM CDT Office Visit [facility] - Primary Care - [place] [address] [place] [address] Cory Puentes PAC [address] [place] [address] 05/15/2025 9:30 AM CDT Office Visit [facility] - Gastroenterology - [place] [address] [place] [address] Vilma Chavarria APRN, RED HAT ENGINEER [address] [place] [address] 08/12/2025 9:30 AM CDT Office Visit [facility] - Neurology - [place] [address] [place] [phone] Kassandra Barahona APRN, INFORMATION SECURITY ARCHITECT [address] [place] [address] Scheduled Referrals Name Type Priority Associated Diagnoses Orde r Schedule OCCUPATIONAL THERAPY REFERRAL Outpatient Referral Routine Seizure disorder (HCC) Moderate intellectual disabilities Expected: 04/17/2020, Expires: 04/16/2021 documented as of this encounter Visit Diagnoses Diagnosis Seizure disorder- Primary Unspecified epilepsy without mention of intractable epilepsy Moderate intellectual disabilities documented in this encounter Additional Health Concerns Assessment Noted Time PHQ-9 Depression Total Score: 0 03/09/19 18 1:50 PM PIPER HELPER documented as of this encounter Care Teams Project Manager Process Development Relationship Specialty Start Date End Date Myranda Parham MD PCP - General Family Medicine 11/23/14 04/25/22 Debby Anthony MD PCP - General Family Medicine 04/26/22 04/19/23 Allie Rodriguez MD [address] [place] [address] PCP - General Family Medicine 04/20/23 06/07/23 Cory Puentes PAC [address] [place] [address] PCP - General Physician Plant Clerk 06/08/23 Sukhdev Becker DPM Podiatry 04/13/16 Jose Alejandro Sequeira MD [address] [place] [address] Consulting Physician Neurology 08/19/22 Vilma Chavarria APRN, RED HAT ENGINEER [address] [place] [address] Nurse Practitioner Advanced Practice Nurse 04/26/22 documented as of this encounter
== END 2024-12-03 09:16 | disposition home or self-care (01) ==
LOC: ANHBWCAUD 09:21
DX: H90.42 Sensorineural hearing loss, unilateral, left ear, with unrestricted hearing on the contralateral side (principal); H74.8X3 Other specified disorders of middle ear and mastoid, bilateral; H61.23 Impacted cerumen, bilateral; H73.893 Other specified disorders of tympanic membrane, bilateral
CPT/HCPCS: 92557; 92567